=== PATIENT | male | born 1970 | race Caucasian/White ===

== ENCOUNTER 2017-01-14 16:17 | Emergency (ER) | payer OTHER ==
--- NOTE | ~2017-01-14 | CR150 ---
[facility] A Service of [facility] & [facility] RADIOLOGY TEXT RESULTS PATIENT: PRO SHOEMAKER LOCATION: DOM : [birth year] UNIT #: [id number] AGE: [address]: Ivette Sommers MD SEX: M ORDER DR: [id number] [facility] [address] [place], [place] [address] [id number] E MR#: [id number] Acc #: [id number] NAME: PRO SHOEMAKER : 1970 SEX: M STUDY DATE/TIME: 01/14/2017 19:29 UNIT: [facility] ROOM: STUDY DESCRIPTION: CR Hip Min 2 Views Lt Attending Physician: Ivette Sommers M.D. Ordering Physician: Ivette Sommers M.D. Primary Care Physician: Carolyn Brown Aprn MEDICAL IMAGING REPORT This report is preliminary unless electronic signature is present EXAM Left hip, 01/14/2017. HISTORY 46-year-old male with left hip pain, status post fall down stairs 3 days ago. COMPARISON Pelvis, 08/08/2011. FINDINGS Two views of the left hip demonstrate no acute fracture or dislocation. Bony pelvis intact. Sacrum and SI joints intact. IMPRESSION Unremarkable left hip. Dictated by... Irving Mckeon M.D. THIS IS AN ELECTRONICALLY VERIFIED REPORT Irving Mckeon M.D. at 01/15/2017 6:13 PM Rina TD: 01/14/2017 23:15 JOB #: [id number] MEDICAL IMAGING REPORT Page 1 of 1 COPY
--- NOTE | ~2017-01-14 | CR172 ---
[facility] A Service of [facility] & [facility] RADIOLOGY TEXT RESULTS PATIENT: PRO SHOEMAKER LOCATION: [facility] : [birth year] UNIT #: [id number] AGE: [address]: Ivette Sommers MD SEX: M ORDER DR: [id number] [facility] [address] [place], [place] [address] [id number] E MR#: [id number] Acc #: [id number] NAME: RPO SHOEMAKER : 1970 SEX: M STUDY DATE/TIME: 01/14/2017 19:55 UNIT: [facility] ROOM: STUDY DESCRIPTION: CR Knee 3 Views Lt Attending Physician: Ivette Sommers M.D. Ordering Physician: Ivette Sommers M.D. Primary Care Physician: Carolyn Brown Aprn MEDICAL IMAGING REPORT This report is preliminary unless electronic signature is present EXAM Left knee, 01/14/2017. HISTORY 46-year-old male with left knee pain, status post fall down stairs 3 days ago. COMPARISON Left knee, 03/05/2012. FINDINGS Three views of the left knee demonstrate no acute fracture or dislocation. No joint effusion. Mild degenerative changes of the patellofemoral joint. Soft tissues are unremarkable. IMPRESSION No acute fracture or dislocation. Mild patellofemoral arthrosis. Dictated by... Irving Mckeon M.D. THIS IS AN ELECTRONICALLY VERIFIED REPORT Irving Mckeon M.D. at 01/15/2017 6:13 PM MICHEL/dylan TD: 01/14/2017 23:17 JOB #: [id number] MEDICAL IMAGING REPORT Page 1 of 1 COPY
--- NOTE | ~2017-01-14 | CR106 ---
[facility] A Service of [facility] & [facility] RADIOLOGY TEXT RESULTS PATIENT: PRO SHOEMAKER LOCATION: [place] : [birth year] UNIT #: [id number] AGE: [address]: Ivette Sommers MD SEX: M ORDER DR: [id number] [facility] [address] [place], [place] [address] [id number] E MR#: [id number] Acc #: [id number] NAME: PRO SHOEMAKER : 1970 SEX: M STUDY DATE/TIME: 01/14/2017 19:53 UNIT: [facility] ROOM: STUDY DESCRIPTION: CR Femur 2 Views Lt Attending Physician: Ivette Sommers M.D. Ordering Physician: Ivette Sommers M.D. Primary Care Physician: Carolyn Brown Aprn MEDICAL IMAGING REPORT This report is preliminary unless electronic signature is present EXAM Left femur, 01/14/2017 HISTORY 46-year-old male with left femur pain status post fall down stairs 3 days ago. COMPARISON None. FINDINGS 4 views of the left femur demonstrate no acute fracture or dislocation. Soft tissues are unremarkable. IMPRESSION Unremarkable left femur. Dictated by... Irving Mckeon M.D. THIS IS AN ELECTRONICALLY VERIFIED REPORT Irving Mckeon M.D. at 01/15/2017 6:14 PM MICHEL/juan TD: 01/14/2017 23:14 JOB #: [id number] MEDICAL IMAGING REPORT Page 1 of 1 COPY
--- NOTE | ~2017-01-14 | CR63 ---
[facility] A Service of [facility] & [facility] RADIOLOGY TEXT RESULTS PATIENT: PRO SHOEMAKER LOCATION: [place] : [birth year] UNIT #: [id number] AGE: [address]: Ivette Sommers MD SEX: M ORDER DR: [id number] [facility] [address] [place], [place] [address] [id number] E MR#: [id number] Acc #: [id number] NAME: PRO SHOEMAKER : 1970 SEX: M STUDY DATE/TIME: 01/14/2017 19:27 UNIT: [facility] ROOM: STUDY DESCRIPTION: CR Chest 2 View Attending Physician: Ivette Sommers M.D. Ordering Physician: Ivette Sommers M.D. Primary Care Physician: Carolyn Brown Aprn MEDICAL IMAGING REPORT This report is preliminary unless electronic signature is present EXAM Two-view chest, 01/14/2017 HISTORY 46-year-old male with chest pain status post fall down stairs 3 days ago. COMPARISON None. FINDINGS Two frontal views and one lateral view of the chest. Three total images. Lungs and pleural spaces are clear. No pneumothorax. Heart size and mediastinum are normal. Pulmonary vasculature normal. IMPRESSION No acute cardiopulmonary findings. Dictated by... Irving Mckeon M.D. THIS IS AN ELECTRONICALLY VERIFIED REPORT Irving Mckeon M.D. at 01/15/2017 6:13 PM MICHEL/juan TD: 01/14/2017 23:11 JOB #: [id number] MEDICAL IMAGING REPORT Page 1 of 1 COPY
--- NOTE | ~2017-01-14 | CR229 ---
[facility] A Service of [facility] RADIOLOGY TEXT RESULTS PATIENT: PRO SHOEMAKER LOCATION: [facility] : [birth year] UNIT #: [id number] AGE: [address]: Ivette Sommers MD SEX: M ORDER DR: [id number] [address] [place], [place] [address] [id number] E MR#: [id number] Acc #: [id number] NAME: PRO SHOEMAKER : 1970 SEX: M STUDY DATE/TIME: 01/14/2017 20:02 UNIT: [facility] ROOM: STUDY DESCRIPTION: CR Shoulder Min 2 View Lt Attending Physician: Ivette Sommers M.D. Ordering Physician: Ivette Sommers M.D. Primary Care Physician: Carolyn Brown Aprn MEDICAL IMAGING REPORT This report is preliminary unless electronic signature is present EXAM Left shoulder, 01/14/2017 HISTORY 46-year-old male with left shoulder pain status post fall down stairs 3 days ago. COMPARISON None. FINDINGS 3 views of the left shoulder demonstrate no acute fracture or dislocation. Acromioclavicular joint within normal limits. Soft tissues are unremarkable. IMPRESSION Unremarkable left shoulder. Dictated by... Irving Mckeon M.D. THIS IS AN ELECTRONICALLY VERIFIED REPORT Irving Mckeon M.D. at 01/15/2017 6:13 PM MICHEL/juan TD: 01/14/2017 23:13 JOB #: [id number] MEDICAL IMAGING REPORT [facility] A Service of [facility] RADIOLOGY TEXT RESULTS PATIENT: PRO SHOEMAKER LOCATION: [facility] : [birth year] UNIT #: [id number] AGE: [address]: Ivette Sommers MD SEX: M ORDER DR: Page 1 of 1 COPY
--- NOTE | ~2017-01-14 | CR181 ---
[facility] A Service of [facility] & [facility] RADIOLOGY TEXT RESULTS PATIENT: PRO SHOEMAKER LOCATION: [facility] : [birth year] UNIT #: [id number] AGE: [address]: Ivette Sommers MD SEX: M ORDER DR: [id number] [facility] [address] [place], [place] [address] [id number] E MR#: [id number] Acc #: [id number] NAME: PRO SHOEMAKER : 1970 SEX: M STUDY DATE/TIME: 01/14/2017 19:29 UNIT: [facility] ROOM: STUDY DESCRIPTION: CR Lumbar Spine 2 or 3 Views Attending Physician: Ivette Sommers M.D. Ordering Physician: Ivette Sommers M.D. Primary Care Physician: Carolyn Brown Aprn MEDICAL IMAGING REPORT This report is preliminary unless electronic signature is present EXAM Lumbar spine 3 views HISTORY Fell down stairs 3 days ago. Complains of low back pain. FINDINGS AP and lateral projections of the lumbar segment show good mineralization of both anterior and posterior elements. They are all anatomically normal without indication of fracture, dislocation, or malignant change of a sclerotic or lytic type. There is no congenital defect noted. The sacroiliac joints are normal. IMPRESSION Normal lumbar spine. Dictated by... Shira Enriquez M.D. THIS IS AN ELECTRONICALLY VERIFIED REPORT Shira Enriquez M.D. at 01/15/2017 9:16 PM GURDEEP/juan TD: 01/14/2017 23:10 JOB #: [id number] MEDICAL IMAGING REPORT Page 1 of 1 COPY
[~2017-01-14 16:17] MED LIST: ACETAMINOPHEN; AMOXICILLIN500 M1 PO; ANTI-INFLAMMATORY; FLEXERIL PO; FLEXERIL10 MG PO; IBUPROFEN100 MG PO; MEDROL PO; PEN-VEE K PO; PERCOCET5/325 PO; ULTRAM PO; VICODIN 5/1 TAB 5/50 PO; VOLTAREN75 MG PO; XYLOCAINE MM; [UNRECOGNIZED DRUG - OTHER] MM
[2017-01-14 18:07] LABS: URINE SOURCE CLEAN CATCH
[2017-01-14 18:14] LABS: URINE APPEARANCE CLEAR; URINE BILIRUBIN NEG (NEG); URINE BLOOD NEG (NEG); URINE COLOR YELLOW; URINE GLUCOSE NEG (NEG); URINE KETONE NEG (NEG); URINE LEUKOCYTE ESTERASE NEG (NEG); URINE NITRATE NEG (NEG); URINE PH 5.5 (5-8); URINE PROTEIN NEG (NEG); URINE SPECIFIC GRAVITY 1.011 (1.003-1.035); URINE UROBILINOGEN 0.2 MG/DL (NEG)
[2017-01-14 18:49] LABS: CULTURE INDICATED? NO
== END 2017-01-14 20:55 | disposition home or self-care (01) ==
LOC: CED 16:17
DX: M54.5 Low back pain (principal); G89.29 Other chronic pain; I10 Essential (primary) hypertension; E78.5 Hyperlipidemia, unspecified; F17.210 Nicotine dependence, cigarettes, uncomplicated
CPT/HCPCS: 71020; 72100; 73030; 73502; 73552; 73562; 81003; 96372; 99283; J1100; J1885